=== PATIENT | female | born 1950 | race Caucasian/White ===

== ENCOUNTER 2018-06-11 13:38 | Emergency (ER) | payer MEDICARE, OTHER ==
[~2018-06-11] VITALS: Wt 105.0 kg
[~2018-06-11 13:38] MED LIST: ASPI-817 PO; ATOR20TA38 PO; CARV3.1260 PO; LOSA100T15 PO; METF-849 PO; ONDA4TAB35 PO
[2018-06-11 13:41] VITALS: BP 137/61; PULSE 86; RESP 18
[2018-06-11] MEDS ORDERED: CEPH-443 PO (16:09)
[2018-06-11] MEDS ORDERED: IBUP-1542 PO (16:09)
--- NOTE | 2018-06-11 16:13 | ERD ---
ER Documentation Chief Complaint Chief Complaint SORE THROAT AND LEFT EAR PAIN X 3 DAYS HPI 68-year-old female presents with sore throat left ear pain and dental pain for last 3 days. She denies fevers, vomiting, shortness breath or chest pain. She did have recent dental extraction of the left lower molar area. Which she feels is the origin of her pain. ROS All systems reviewed and are negative except as per history of present illness. Medications Home Meds Active Scripts Ibuprofen* (Motrin*) 600 Mg Tab, 600 MG PO Q6, #20 TAB Prov:JF HICKS MD 06/11/18 Cephalexin* (Keflex*) 500 Mg Capsule, 500 MG PO QID for 10 Days, CAP Prov:JF HICKS MD 06/11/18 Ondansetron Hcl* (Zofran* ODT) 4 mg -ODT Tab.disper, 4 MG PO Q6 PRN for NAUSEA AND/OR VOMITING, #30 TAB Prov:JAQUI FARIAS MD 02/07/15 Reported Medications Carvedilol* (Carvedilol*) 3.125 Mg Tablet, 3.125 MG PO BID, TAB 02/07/15 Atorvastatin Calcium* (Atorvastatin Calcium*) 20 Mg Tablet, 20 MG PO HS, TAB 02/07/15 Metformin* (Glucophage*) 500 Mg Tab, 500 MG PO TID, TAB 02/07/15 Aspirin* (Aspirin* EC) 81 Mg Tablet.dr, 81 MG PO DAILY, TAB 02/07/15 Losartan Potassium* (Losartan Potassium*) 100 Mg Tablet, 100 MG PO DAILY, TAB 02/07/15 Allergies Allergies: Coded Allergies: Penicillin V (Verified Allergy, Intermediate, 05/25/13) PMhx/Soc History of Surgery: No Anesthesia Reaction: No Hx Neurological Disorder: No Hx Respiratory Disorders: No Hx Cardiac Disorders: Yes (pericarditis; 'heart hx') Hx Psychiatric Problems: No Hx Miscellaneous Medical Probl: Yes (HTN) Hx Alcohol Use: No Hx Substance Use: No Hx Tobacco Use: No Smoking Status: Never smoker FmHx Family History: No diabetes, No coronary disease, No other Physical Exam Vitals Vital Signs Date Temp Pulse Resp B/P (MAP) Pulse Ox O2 O2 Flow FiO2 Time Delivery Rate 06/11/18 98.3 86 18 137/61 99 13:41 (86) Physical Exam Const: No acute distress Head: Atraumatic Eyes: Normal Conjunctiva ENT: Normal External Ears, Nose and Mouth. TMs normal. Tender left mandible area the base of the extraction. Airway patent. No facial erythema or induration. No significant pain with passive range of motion of the external ear. External auditory canal normal appearing. Neck: Full range of motion. No meningismus. Resp: Clear to auscultation bilaterally Cardio: Regular rate and rhythm, no murmurs Abd: Soft, non tender, non distended. Normal bowel sounds Skin: No petechiae or rashes Back: No midline or flank tenderness Ext: No cyanosis, or edema Neur: Awake and alert Psych: Normal Mood and Affect Procedures/MDM Patient presents with left ear pain and mandible or dental pain. She may have a mild dental infection. Symptoms of airway obstruction, facial cellulitis, mastoiditis, abscess, additional concerning findings. Will treat with Keflex, ibuprofen, primary care follow-up and return precautions. The patient was stable with no new complaints during the ER course. Clinically, there is no current evidence to suggest meningitis, sepsis, acute abdomen, pneumonia, stroke, acute coronary syndrome, pulmonary embolism, aortic dissection or any other emergent condition appearing to require further evaluation or hospitalization. Patient counseled regarding my diagnostic impression and care plan. Prior to discharge all questions answered. Pt agrees with treatment plan and understands strict return precautions. Pt is instructed to follow up with primary care provider within 24-48 hours. Precautionary instructions provided including instructions to return to the ER if not improving or for any worsening or changing symptoms or concerns. Departure Diagnosis: Primary Impression: Pain, dental Additional Impression: Sore throat Condition: Stable Patient Instructions: Dental Pain Ref[facility] Usted se soto hecho un examen mdico de control que le indica que no est en russ condicin que requiera tratamiento urgente en el Departamento de Emergencia. Un estudio ms profundo y el tratamiento de tobias condicin pueden esperar sin ningn riesgo hasta que usted sea atendida/o en el consultorio de tobias mdico o russ clnica. Es responsabilidad suya arreglar russ burke para el seguimiento del shiraz. MANEJO DE CONDICIONES NO URGENTES EN EL FUTURO 1) Si usted tiene un mdico de atencin primaria: Usted debera llamar a tobias mdico de atencin primaria antes de venir al departamento de emergencia. Despus de las horas de consultorio, tobias doctor o tobias asociado/a est disponible por telfono. El mdico o enfermero de cleo en el servicio telefnico puede asesorarle por luz maria medio para atender el problema, o shiraz contrario se puede programar russ burke. 2) Si usted no tiene un mdico de atencin primaria: Llame al mdico o clnica de referencia que aparece abajo haresh las horas de consultorio para hacer russ burke para que le vean. CLINICAS: [facility] [phone] [facility] [phone] [facility]. [facility] [phone] [facility]. [facility] [phone] [facility]. [place] [phone] [facility]. [phone] [address] Additional Instructions: Cheque otro vez con tobias doctor primario en el proximo santana or regresa para mas o nueva simptomas. JF HICKS MD Jun 11, 2018 16:13
== END 2018-06-11 17:25 | disposition home or self-care (01) ==
LOC: FTE 13:38
DX: K08.89 Other specified disorders of teeth and supporting structures (principal); I10 Essential (primary) hypertension; Z79.82 Long term (current) use of aspirin; Z79.84 Long term (current) use of oral hypoglycemic drugs
CPT/HCPCS: 99283